=== PATIENT | female | born 1960 | race Caucasian/White ===

== ENCOUNTER 2025-11-17 14:57 | Emergency (ER) | payer OTHER, SELFPAY ==
--- NOTE | ~2025-11-17 | CT_ITS ---
EXAMINATION: CT HEAD WITHOUT CONTRAST CLINICAL INFORMATION: Fall COMPARISON: None available. TECHNIQUE: Contiguous axial imaging was performed from the skull base to vertex without intravenous administration of contrast. This CT examination was performed using dose optimization techniques as appropriate, variously including the following: *Automated exposure control *Adjustment of mA and/or kV according to patient size (this includes techniques or standardized protocols for targeted exams where dose is matched to indication/reason for exam; i.e. extremities or head) *Use of iterative reconstruction technique FINDINGS: There is no acute ischemic change. There is no intracranial hemorrhage. There is no mass-effect or midline shift. Basal cisterns and ventricles are within normal limits for age/cerebral volume. Orbits are symmetrical and unremarkable. There is mucosal thickening along the posterior wall right sphenoid sinus. There is partial opacification of the ethmoid air cells on the right. There is mucosal thickening along the superior medial right maxillary sinus. There are marginal osteophyte involving bilateral anterior condyles. CT/CT head/brain wo IV con IMPRESSION: No acute intracranial abnormality. Chronic mucosal changes in the right ethmoid, sphenoid, and maxillary sinuses. Osteoarthritis: bilateral temporal mandibular joints. Electronically signed by: Oswald Orellana MD 11/17/2025 03:38 PM EST
--- NOTE | ~2025-11-17 | CT_ITS ---
EXAMINATION: CT CERVICAL SPINE WITHOUT CONTRAST CLINICAL INFORMATION: Trauma, fall COMPARISON: None available. TECHNIQUE: Axial imaging was performed from the base of the skull through T2 without IV contrast. Coronal and sagittal reformatted images were generated from the original axial data set. ALARA: The examination used one or more of the following radiation dose reduction techniques: Automated exposure control, iterative reconstruction, and/or adjustment of mA and/or KV. FINDINGS: There is a 6 mm low attenuating nodule in the right lobe thyroid gland and 4 mm hypodensity in the left. There is no prevertebral soft tissue swelling. There are facet and uncovertebral osteophytes throughout the cervical spine. There is also degenerative disc disease with calcification in the disc at C2 4 C4-5. At C6-7 there is moderate disc space narrowing with vacuum phenomenon and degenerative endplate changes. CT/CT cervical spine wo IV con IMPRESSION: No acute bony abnormality. 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 Bilateral thyroid lobe nodules, follow-up nonemergent thyroid ultrasound. Electronically signed by: Oswald Orellana MD 11/17/2025 03:44 PM EST
--- NOTE | ~2025-11-17 | XR_ITS ---
EXAMINATION: XR KNEE 4 OR MORE VIEWS RIGHT, XR KNEE 4 OR MORE VIEWS LEFT HISTORY: Fall COMPARISON: There are no prior studies available for comparison. FINDINGS: Eight views of the bilateral knees are submitted. Osseous mineralization is normal. There is no fracture or dislocation. There is mild tricompartmental osteoarthritis of both knees with joint space narrowing and small osteophyte formation. The soft tissues are unremarkable. There is no joint effusion. XR/XR knee LT 4V IMPRESSION: No evidence of fracture of the bilateral knees. Electronically signed by: Sumeet Burger MD 11/17/2025 03:25 PM TRISHA
--- NOTE | ~2025-11-17 | XR_ITS ---
EXAMINATION: XR KNEE 4 OR MORE VIEWS RIGHT, XR KNEE 4 OR MORE VIEWS LEFT HISTORY: Fall COMPARISON: There are no prior studies available for comparison. FINDINGS: Eight views of the bilateral knees are submitted. Osseous mineralization is normal. There is no fracture or dislocation. There is mild tricompartmental osteoarthritis of both knees with joint space narrowing and small osteophyte formation. The soft tissues are unremarkable. There is no joint effusion. XR/XR knee RT 4V IMPRESSION: No evidence of fracture of the bilateral knees. Electronically signed by: Sumeet Burger MD 11/17/2025 03:25 PM TRISHA
--- NOTE | ~2025-11-17 | XR_ITS ---
EXAMINATION: XR SHOULDER 2 OR MORE VIEWS RIGHT HISTORY: fall COMPARISON: There are no prior studies available for comparison. FINDINGS: Three views of the right shoulder are submitted. Osseous mineralization is normal. There is no fracture or dislocation. The glenohumeral joint is maintained. There is moderate narrowing of the AC joint. The soft tissues are unremarkable. XR/XR shoulder RT min 2V IMPRESSION: Moderate narrowing of the AC joint. No evidence of fracture of the right shoulder. Electronically signed by: Sumeet Burger MD 11/17/2025 03:22 PM TRISHA YANG
[2025-11-17 15:02] VITALS: BP 137/101; PULSE 91; RESP 18; TEMP 36.6; O2SAT 98; BMI 21.9
--- NOTE | 2025-11-17 15:04 | ED.GENADULT ---
HPI - General Adult General Chief complaint: Head Injury Stated complaint: Fall- Hit Top Of Head Time Seen by Provider: 11/17/25 16:11 Source: patient, RN notes reviewed and old records reviewed Mode of arrival: ambulatory Limitations: no limitations History of Present Illness ED Provider: Rodríguez KELLER narrative: 65-year-old female presents for evaluation after a fall. She reports that she tripped over a curb She struck the right side of her on the ground and suffered a small laceration. She denies any chest pain, lightheadedness, shortness of breath or dizziness prior to or after falling. She will receive entire incident. She reports falling on her knees as well She has some right shoulder pain. She is not anticoagulated. She has no other complaints or concerns at this time Related Data Allergies Allergy/AdvReac Type Severity Reaction Status Date / Time Penicillins (PCN) Allergy Unknown Verified 11/17/25 15:04 Review of Systems Constitutional: Constitutional: Denies body ache(s), Denies chills, Denies fever(s) and Denies headache(s) Eyes: Eyes: Denies blurry vision, Denies seeing flashes and Denies photophobia ENT: Denies dysphagia, Denies vertigo, Denies dizziness and Denies headache(s) Cardiovascular: Cardiovascular: Denies chest pain, Denies syncope, Denies palpitations and Denies dyspnea on exertion Respiratory: Respiratory: Denies cough and Denies dyspnea on exertion Gastrointestinal: Gastrointestinal: Denies abdominal pain, Denies dysphagia, Denies nausea and Denies vomiting Musculoskeletal: Musculoskeletal: Denies back pain, Reports arthralgias and Reports joint swelling Integumentary/Breasts: Skin/Breast: Denies rash and Reports wounds Neurologic: Denies vertigo, Denies dizziness, Denies syncope and Denies headache(s) Psychiatric: Psychiatric: Denies anxiety Endocrine: Endocrine: Denies palpitations [facility] Social History Social History Advance Directives: No Advance Directives Information Provided: No Do you have a plan to hurt others: No Plan Physical Exam ED Vital Signs: Vital Signs - 24 hr 11/17/25 15:02 11/17/25 16:28 11/17/25 17:15 Temperature 98 F 98 F Pulse Rate 91 74 74 Respiratory Rate 18 16 16 Blood Pressure 137/101 H 124/93 H 124/93 H Pulse Oximetry 98 97 97 Oxygen Delivery Method Room Air Room Air Room Air BMI result Body Mass Index 21.9 Const General: healthy appearing, comfortable, no acute distress, alert and awake Nutritional Appearance: well nourished Orientation/consciousness: patient oriented x3 HENMT Other: There is a small, linear 1 cm laceration superolateral to the lateral aspect of the right eyebrow. No active bleeding Eyes Eyelids: Yes eyelids normal Conjunctivae: conjunctivae normal Sclerae: sclerae normal Corneas: corneas normal Pupils: Equal, round and reactive pupils present EOM: EOMs intact bilaterally Direct Ophthalmoscopy: No photophobia Neck Neck: Yes full ROM Resp Effort & Inspection: normal respiratory effort, able to speak in complete sentences and not labored Cardio Rate: regular rate Rhythm: regular rhythm GI Inspection: No distended Palpation (GI): Soft to palpation, not firm, nontender, no guarding and not rigid Skin General skin exam: elasticity normal Neuro General: patient oriented x3 Cranial nerves: Yes CN's II-XII intact bilaterally, Yes Equal, round and reactive pupils present and Yes Bilaterally intact EOM present Cognition (Neuro): normal cognition Extrem Other: Moving all extremities well without any obvious deformities Course Course Course Narrative: RME: 65 yold female presens to the ED for fall at [employer]. Patient states bilateral knee pain, rigt shoulder pain, and right sided hedache after tripping over curb. patient denies any dizziness, chest pain, shorntess of brath, adominal pain, or headache, before falling. images ordered Medications Administered Discontinued Medications Generic Name Dose Route Start Last Admin Trade Name Freq PRN Reason Stop Dose Admin Diphtheria/Tetanus/Acell Pertussis 0.5 ml 11/17/25 16:37 11/17/25 17:11 Diphth,Pertus(Acell),Tet Adult 0.5 Ml Syringe IM 11/17/25 16:38 0.5 ml .ONCE ONE Administration Lidocaine/Epinephrine 10 ml 11/17/25 16:37 11/17/25 17:11 Lidocaine Hcl 1%/Epi 1:100,000 10 Ml Vial INFILTRATI 11/17/25 16:38 10 ml ONCE ONE Administration Procedures Laceration Laceration 1: Site: face Side (If applicable): right Size (cm): 2 Description: linear Depth: simple, single layer Local Anesthetic: lidocaine 1% and with epi Amount of anesthesia used (mL): 2 Pre-repair: wound explored, irrigated extensively and deep structures intact Size (cm): 5-0 Number of sutures: 3 Technique: simple, interrupted Medical Decision Making Medical Decision Making MDM Narrative: 65-year-old female presents for evaluation after a nonsyncopal fall. She tripped over a curb. She had a CT scan of the brain and cervical spine which shows an incidental thyroid nodule and some arthritis. These findings were discussed with the patient. No other traumatic injuries noted. She had x-ray imaging as well that does not show any traumatic injuries. The patient is quite well appearing, this is an isolated incident, she is able to ambulate without any difficulty. I do not feel that she would benefit from a physical therapy evaluation and a rehab. The patient is stable for discharge. Her tetanus was updated Differential Diagnosis Differential Diagnoses: The differential diagnosis associated with the presentation includes Fall Laceration Minor head injury Concussion Intracranial hemorrhage Cervical fracture Radiology Impression Discussion of test interpretation with radiology: I have reviewed the radiologist's reading. Radiologist Impression: FINDINGS: There is no acute ischemic change. There is no intracranial hemorrhage. There is no mass-effect or midline shift. Basal cisterns and ventricles are within normal limits for age/cerebral volume. Orbits are symmetrical and unremarkable. There is mucosal thickening along the posterior wall right sphenoid sinus. There is partial opacification of the ethmoid air cells on the right. There is mucosal thickening along the superior medial right maxillary sinus. There are marginal osteophyte involving bilateral anterior condyles. CT/CT head/brain wo IV con IMPRESSION: No acute intracranial abnormality. Chronic mucosal changes in the right ethmoid, sphenoid, and maxillary sinuses. Osteoarthritis: bilateral temporal mandibular joints. Electronically signed by: Oswald Orellana MD 11/17/2025 03:38 PM [facility] FINDINGS: There is a 6 mm low attenuating nodule in the right lobe thyroid gland and 4 mm hypodensity in the left. There is no prevertebral soft tissue swelling. There are facet and uncovertebral osteophytes throughout the cervical spine. There is also degenerative disc disease with calcification in the disc at C2 4 C4-5. At C6-7 there is moderate disc space narrowing with vacuum phenomenon and degenerative endplate changes. CT/CT cervical spine wo IV con IMPRESSION: No acute bony abnormality. 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 Bilateral thyroid lobe nodules, follow-up nonemergent thyroid ultrasound. Electronically signed by: Oswald Orellana MD 11/17/2025 03:44 PM EST RP FINDINGS: Eight views of the bilateral knees are submitted. Osseous mineralization is normal. There is no fracture or dislocation. There is mild tricompartmental osteoarthritis of both knees with joint space narrowing and small osteophyte formation. The soft tissues are unremarkable. There is no joint effusion. XR/XR knee LT 4V IMPRESSION: No evidence of fracture of the bilateral knees. Electronically signed by: Sumeet Burger MD 11/17/2025 03:25 PM EST RP Discharge Plan Discharge Clinical Impression: Facial laceration, Thyroid nodule Patient Disposition: Home, Self-Care Instructions: Laceration (ED) Additional Instructions: Your imaging today showed mild arthritis in your neck, knees and shoulder. Incidentally found was a nodule on your thyroid. It is recommended that you get a nonemergent ultrasound to follow up with us up You had 3 sutures placed at given removed in 5-7 days. Keep the area clean and dry. You may apply topical antibiotic Interventions: ED Discharge Assessment Last Done: 11/17/25 17:15 Discharge Date/Time: 11/17/25 17:19 Print Language: Maltese
[2025-11-17 16:28] VITALS: BP 124/93; PULSE 74; RESP 16; O2SAT 97
[2025-11-17] MEDS: Diphth,Pertus(ACell),Tet Adult 0.5 ML SYRINGE IM (17:11)
[2025-11-17] MEDS: Lidocaine HCl 1%/Epi 1:100,000 10 ML VIAL INFILTRATI (17:11)
[2025-11-17 17:15] VITALS: BP 124/93; PULSE 74; RESP 16; TEMP 36.6; O2SAT 97
--- OUTSIDE RECORDS SUMMARY | 2025-11-17 18:55 | XMS_ITS | Encounter Summary ---
Author Organization Ren Salguero MD Address Unknown Phone Care Team Providers Care Lead Sql Developer Name Role Phone Jaren Fuentes APRN Primary Care Provider Reason for Visit * Reason Comments Medication Refill Encounter Details Date Type Department Care Team (Late st Contact Info) Description 12/28/[address] Ren Salguero [address] [id number] Ren Salguero MD [address] [phone] Medication Refill Social History Tobacco Use Types Packs/Day Years Used Date Smoking Tobacco: Never Smokeless Tobacco: Never Comments Unknown Sex and Gender Information Value Date Recorded Sex Assigned at Not on file Legal Sex Female 6:50 AM EST Gender Identity Female 01/06/2024 4:17 PM EST Sexual Orientation Choose not to disclose 2023 4:17 PM EST documented as of this encounter Plan of Treatment Upcoming Encounters Date Type Department Care Team (Late st Contact Info) Description 02/12/2026 10:00 AM EDT Follow Up [facility] [place] [address] [place], [place] [id number] Jaren Fuentes APRN [address] [place] [phone] 06/11/2026 8:40 AM EDT Office Visit Cardiovascular Medicine at [address] [facility] [address] [facility] [address] [place] [address] Jaren Fuentes APRN [address] [place] [phone] Kings Frederick MD [address] [place] [phone] 08/31/2026 10:00 AM EDT Follow Up Dr Ren Salguero [address] [phone] Ren Salguero MD [address] [phone] 11/06/2026 4:00 PM EST Office Visit [facility] [place] [address] [place], [place] [id number] Jaren Fuentes APRN [address] [place] [address] documented as of this encounter Visit Diagnoses Diagnosis Nummular dermatitis Contact dermatitis and other eczema, due to unspecified cause documented in this encounter Additional Health Concerns Infection Onset Date Last Indicated Resolved Time COVID-19 03/04/2022 03/04/2022 03/14/2022 7:20 PM EDT documented as of this encounter Care Teams Lead Sql Developer Relationship Specialty Start Date End Date Jaren Fuentes APRN [address] [place] [phone] PCP - General Internal Medicine 05/21/25 documented as of this encounter
--- OUTSIDE RECORDS SUMMARY | 2025-11-17 18:55 | XMS_ITS ---
Author Name [facility] Organization Unknown Results Test Name/Text Value Interpretation Date Range Source HbA1c MFr Bld 5.5 % 10/31/2025 - [facility] BKR ESTIMATED AVERAGE GLUCOSE 111.0 mg/dL 10/31/2025 [facility] 25(OH)D3+25(OH)D2 SerPl-mCnc 34.0 ng/mL 10/29/2025 - [facility] Trigl SerPl-mCnc 39.0 mg/dL 10/29/2025 - [facility] LDLc SerPl Calc-mCnc 152.0 mg/dL Above high normal 5 - [facility] Cholest SerPl-mCnc 242.0 mg/dL Above high normal 10/29/2025 - [facility] Cholest/HDLc SerPl 2.9 10/29/2025 0 - 5 [facility] HDLc SerPl-mCnc 84.0 mg/dL 10/29/2025 - [facility] Albumin SerPl BCG-mCnc 4.1 g/dL 10/29/2025 3.6 - 5.1 [facility] AST SerPl w P-5'-P-cCnc 17.0 U/L 10/29/2025 10 - 35 [facility] GFR SerPlBld Creatinine-bsd fmla CKD-EPI >60.0 mL/min/1.73m2 10/29/2025 - [facility] Potassium SerPl-sCnc 4.0 mmol/L 10/29/2025 3.3 - 5 .3 [facility] HCO3 SerPl-sCnc 26.0 mmol/L 10/29/2025 20 - 30 [facility] Chloride SerPl-sCnc 103.0 mmol/L 10/29/2025 98 - 1 07 [facility] Albumin/Glob SerPl 1.4 10/29/2025 1 - 2.2 [facility] BUN/Creat SerPl 26.1 Above high normal 10/29/2025 8 - 2 3 [facility] Prot SerPl-mCnc 7.0 g/dL 10/29/2025 5.9 - 8.3 [facility] Calcium SerPl-mCnc 9.0 mg/dL 10/29/2025 8.8 - 10.2 [facility] ALP SerPl-cCnc 35.0 U/L 10/29/2025 9 - 122 [facility] BKR CREATININE DELTA -0.01 10/29/2025 - [facility] BUN SerPl-mCnc 18.0 mg/dL 10/29/2025 8 - 23 [facility] Glucose SerPl-mCnc 90.0 mg/dL 10/29/2025 70 - 100 [facility] ALT SerPl w/o P-5'-P-cCnc 15.0 U/L 10/29/2025 10 - 35 [facility] Sodium SerPl-sCnc 140.0 mmol/L 10/29/2025 136 - 14 4 [facility] Bilirub SerPl-mCnc 0.5 mg/dL 10/29/2025 - [facility] Anion Gap SerPl Calculated.3Ions-sCnc 11.0 10/29/2025 7 - 17 [facility] T AST/ALT SerPl-cRto 1.1 10/29/2025 - [facility] Globulin Plas-mCnc 2.9 g/dL 10/29/2025 2 - 3.9 [facility] Creat SerPl-mCnc 0.69 mg/dL 10/29/2025 0.4 - 1.3 [facility] Iron Satn MFr SerPl 30.0 % 10/29/2025 15 - 50 [facility] TIBC SerPl-mCnc 237.0 ug/dL Below low normal 10/29/2025 250 - 450 [facility] Iron SerPl-mCnc 71.0 ug/dL 10/29/2025 37 - 145 [facility] TSH SerPl DL<=0.005 mIU/L-aCnc 2.49 uIU/mL 10/29/2025 - [facility] Vit B12 SerPl-mCnc 1300.0 pg/mL Above high normal 10/29/2025 232 - 1245 [facility] Ferritin SerPl-mCnc 250.0 ng/mL Above high normal 10/29/2025 13 - 150 [facility] MCHC RBC Auto-EntMCnc 32.2 g/dL 10/29/2025 31 - 36 [facility] RDW RBC Auto 12.7 % 10/29/2025 11 - 15 [facility] T WBC # Bld Auto 7.1 x1000/uL 10/29/2025 4 - 11 [facility] Hct VFr Bld Auto 41.3 % 10/29/2025 35 - 45 [facility] Monocytes NFr Bld Auto 8.8 % 10/29/2025 4 - 12 [facility] Platelet # Bld Auto 253.0 x1000/uL 10/29/2025 150 - 420 [facility] Basophils # Bld Auto 0.1 x 1000/uL 10/29/2025 0 - 1 [facility] Imm Granulocytes NFr Bld Auto 0.1 % 10/29/2025 0 - 1 [facility] Eosinophil NFr Bld Auto 7.1 % Above high normal 10/29/2025 0 - 5 [facility] Imm Granulocytes # Bld Auto 0.01 x 1000/uL 10/29/2025 0 - 0.3 [facility] nRBC Bld Auto-Rto 0.0 % 10/29/2025 0 - 1 [facility] Monocytes # Bld Auto 0.63 x 1000/uL 10/29/2025 0 - 1 [facility] MCH RBC Qn Auto 29.5 pg 10/29/2025 27 - 33 [facility] Lymphocytes # Bld Auto 2.24 x 1000/uL 10/29/2025 0 .6 - 3.7 [facility] RBC # Bld Auto 4.51 M/uL 10/29/2025 4 - 6 [facility] Eosinophil # Bld Auto 0.51 x 1000/uL 10/29/2025 0 - 1 [facility] Basophils NFr Bld Auto 1.4 % 10/29/2025 0 - 1. 4 [facility] Neutrophils NFr Bld Auto 51.2 % 10/29/2025 39 - 72 [facility] RBC Auto 91.6 fL 10/29/2025 80 - 100 [facility] nRBC # Bld Auto 0.0 x 1000/uL 10/29/2025 0 - 1 [facility] Lymphocytes NFr Bld Auto 31.4 % 10/29/2025 17 - 50 [facility] Neutrophils # Bld Auto 3.65 x 1000/uL 10/29/2025 2 - 7.6 [facility] PMV Bld Auto 9.5 fL 10/29/2025 8 - 12 [facility] T Hgb Bld-mCnc 13.3 g/dL 10/29/2025 11.7 - 15.5 [facility] HbA1c MFr Bld 5.6 % 06/05/2025 - [facility] CT BKR ESTIMATED AVERAGE GLUCOSE 114.0 mg/dL 06/05/2025 [facility] Vit B12 SerPl-mCnc 1032.0 pg/mL 06/04/2025 232 - 1 245 [facility] Hct VFr Bld Auto 43.7 % 06/04/2025 35 - 45 [facility] Basophils NFr Bld Auto 1.9 % Above high normal 0 - 1.4 [facility] Eosinophil # Bld Auto 0.56 x 1000/uL 06/04/2025 0 - 1 [facility] RBC # Bld Auto 4.71 M/uL 06/04/2025 4 - 6 [facility] MCHC RBC Auto-EntMCnc 32.7 g/dL 06/04/2025 31 - 36 [facility] Basophils # Bld Auto 0.14 x 1000/uL 06/04/2025 0 - 1 [facility] nRBC Bld Auto-Rto 0.0 % 06/04/2025 0 - 1 [facility] MCH RBC Qn Auto 30.4 pg 06/04/2025 27 - 33 [facility] PMV Bld Auto 9.4 fL 06/04/2025 8 - 12 [facility] T RBC Auto 92.8 fL 06/04/2025 80 - 100 [facility] Imm Granulocytes # Bld Auto 0.01 x 1000/uL 06/04/2025 0 - 0.3 [facility] Neutrophils # Bld Auto 3.42 x 1000/uL 06/04/2025 2 - 7.6 [facility] Lymphocytes NFr Bld Auto 35.3 % 06/04/2025 17 - 50 [facility] Platelet # Bld Auto 279.0 x1000/uL 06/04/2025 150 - 420 [facility] Lymphocytes # Bld Auto 2.6 x 1000/uL 06/04/2025 0. 6 - 3.7 [facility] WBC # Bld Auto 7.4 x1000/uL 06/04/2025 4 - 11 [facility] Monocytes # Bld Auto 0.63 x 1000/uL 06/04/2025 0 - 1 [facility] RDW RBC Auto 12.5 % 06/04/2025 11 - 15 [facility] T Eosinophil NFr Bld Auto 7.6 % Above high normal 06/04/2025 0 - 5 [facility] nRBC # Bld Auto 0.0 x 1000/uL 06/04/2025 0 - 1 [facility] Neutrophils NFr Bld Auto 46.5 % 06/04/2025 39 - 72 [facility] Hgb Bld-mCnc 14.3 g/dL 06/04/2025 11.7 - 15.5 [facility] Monocytes NFr Bld Auto 8.6 % 06/04/2025 4 - 12 [facility] Imm Granulocytes NFr Bld Auto 0.1 % 06/04/2025 0 - 1 [facility] TSH SerPl DL<=0.005 mIU/L-aCnc 3.18 uIU/mL 06/04/2025 - [facility] HDLc SerPl-mCnc 95.0 mg/dL 06/04/2025 - [facility] LDLc SerPl Calc-mCnc 177.0 mg/dL Above high normal 5 - [facility] Cholest/HDLc SerPl 2.9 06/04/2025 0 - 5 [facility] Trigl SerPl-mCnc 43.0 mg/dL 06/04/2025 - [facility] Cholest SerPl-mCnc 278.0 mg/dL Above high normal 06/04/2025 - [facility] TIBC SerPl-mCnc 266.0 ug/dL 06/04/2025 250 - 450 [facility] Iron Satn MFr SerPl 39.0 % 06/04/2025 15 - 50 [facility] Iron SerPl-mCnc 103.0 ug/dL 06/04/2025 37 - 145 [facility] Globulin Plas-mCnc 2.7 g/dL 06/04/2025 2 - 3.9 [facility] BUN SerPl-mCnc 15.0 mg/dL 06/04/2025 8 - 23 [facility] BKR CREATININE DELTA 06/04/2025 [facility] BUN/Creat SerPl 21.4 06/04/2025 8 - 23 [facility] Creat SerPl-mCnc 0.7 mg/dL 06/04/2025 0.4 - 1.3 [facility] GFR SerPlBld Creatinine-bsd fmla CKD-EPI >60.0 mL/min/1.73m2 06/04/2025 - [facility] Albumin SerPl BCG-mCnc 4.5 g/dL 06/04/2025 3.6 - 5.1 [facility] Chloride SerPl-sCnc 102.0 mmol/L 06/04/2025 98 - 1 07 [facility] Anion Gap SerPl Calculated.3Ions-sCnc 12.0 06/04/2025 7 - 17 [facility] T AST/ALT SerPl-cRto 1.0 06/04/2025 - [facility] Sodium SerPl-sCnc 141.0 mmol/L 06/04/2025 136 - 14 4 [facility] AST SerPl w P-5'-P-cCnc 18.0 U/L 06/04/2025 10 - 35 [facility] Calcium SerPl-mCnc 9.2 mg/dL 06/04/2025 8.8 - 10.2 [facility] HCO3 SerPl-sCnc 27.0 mmol/L 06/04/2025 20 - 30 [facility] Glucose SerPl-mCnc 92.0 mg/dL 06/04/2025 70 - 100 [facility] Potassium SerPl-sCnc 4.1 mmol/L 06/04/2025 3.3 - 5 .3 [facility] ALT SerPl w/o P-5'-P-cCnc 18.0 U/L 06/04/2025 10 - 35 [facility] Prot SerPl-mCnc 7.2 g/dL 06/04/2025 5.9 - 8.3 [facility] ALP SerPl-cCnc 41.0 U/L 06/04/2025 9 - 122 [facility] Albumin/Glob SerPl 1.7 06/04/2025 1 - 2.2 [facility] Bilirub SerPl-mCnc 0.6 mg/dL 06/04/2025 - [facility] 25(OH)D3+25(OH)D2 SerPl-mCnc 38.0 ng/mL 06/04/2025 - [facility] Ferritin SerPl-mCnc 278.0 ng/mL Above high normal 06/04/2025 13 - 150 [facility] History of Medication Use Medication Directions Dispensed Refills Start Date End Date Stat us estradioL (ESTRACE) 0.01 % vaginal cream Place 1 g vaginally twice a week. Use daily for first 4 weeks. 11/06/2025 active triamcinolone (KENALOG) 0.1 % lotion Apply topically daily as needed. Apply to affected area 03/31/2025 active triamcinolone (KENALOG) 0.1 % lotion Apply topically daily as needed. Apply to affected area 03/31/2025 active clobetasoL (TEMOVATE) 0.05 % cream apply to affected area twice a day for 2 weeks then once daily for 2 weeks 12/28/2021 active clobetasoL (OLUX) 0.05 % topical foam APPLY TOPICALLY DAILY NEEDED TO AFFECTED AREAS ON SCALP 12/13/2021 active tacrolimus (PROTOPIC) 0.1 % ointment Apply topically daily. Use topical steroid for 1-2 days first then protopic 05/20/2021 active tacrolimus (PROTOPIC) 0.1 % ointment Apply topically daily. Use topical steroid for 1-2 days first then protopic 05/20/2021 active gabapentin (NEURONTIN) 100 mg capsule Take 1 capsule (100 mg total) by mouth 3 (three) times daily. 02/10/2021 09/29/2023 aborted gabapentin (NEURONTIN) 100 mg capsule Take 1 capsule (100 mg total) by mouth 3 (three) times daily. 02/10/2021 active valACYclovir (VALTREX) 1000 mg tablet Take one tablet three times daily for one week for shingles. 02/09/2021 11/23/2022 aborted valACYclovir (VALTREX) 1000 mg tablet Take one tablet three times daily for one week for shingles. 02/09/2021 active ALPRAZolam (XANAX) 0.5 mg tablet take 1 tablet by mouth twice a day if needed as directed 02/02/2021 active ALPRAZolam (XANAX) 0.5 mg tablet take 1 tablet by mouth twice a day if needed as directed 02/02/2021 active propranoloL (INDERAL) 10 mg immediate release tablet take 1 tablet by mouth once daily as directed 02/02/2021 active propranoloL (INDERAL) 10 mg immediate release tablet take 1 tablet by mouth once daily as directed 02/02/2021 active clobetasoL (OLUX) 0.05 % topical foam Apply topically daily. 08/28/2020 03/31/2025 active clobetasoL (TEMOVATE) 0.05 % cream apply to affected area twice a day for 2 weeks then once daily for 2 weeks 03/01/2019 03/31/2025 active predniSONE (DELTASONE) 20 MG tablet 3 p.o. qAM x 5d then 2 p.o. qAM x 5d then 1 p.o. qAM x 5d as directed for poison deanne 08/17/2018 02/09/2021 aborted multivitamin with minerals tablet Take 1 tablet by mouth daily. active Allergies Allergen Reaction Severity Comment Documented Date Source Statu s BALSAM ANA RASH 05/21/2025 [facility] active PENICILLINS RASH 08/17/2018 [facility] active Problems Problem Status Onset Date Problem Type Date of Resolution Source Inconclusive mammogram due to dense breasts active EncounterDiagnosisAct [facility] Nummular dermatitis active 2018-08-17 ProblemAct [facility] Genitourinary syndrome of menopause active EncounterDiagnosisAct [facility] Encounter for osteoporosis screening in asymptomatic postmenopausal patient active EncounterDiagnosisAct [facility] History of nonmelanoma skin cancer active 2021-05-21 ProblemAct [facility] Screening mammogram, encounter for active EncounterDiagnosisAct [facility] History of herpes zoster active 2021-02-09 ProblemAct [facility] Diffuse photodamage of skin active ProblemAct [facility] Allergy to contactant active ProblemAct [facility] Allergy to contactant active ProblemAct [facility] History of herpes zoster active 2021-02-09 ProblemAct [facility] Diffuse photodamage of skin active ProblemAct [facility] Dense breasts active EncounterDiagnosisAct [facility] Mitral valve prolapse active 2025-05-21 ProblemAct [facility] 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 2025-02-12 ProblemAct [facility] Seborrheic keratoses active EncounterDiagnosisA ct [facility] Multiple benign nevi active EncounterDiagnosisA ct [facility] [place], acquired, right active 2023-04-04 ProblemAct [facility] Onychomycosis active 2023-04-03 ProblemAct [facility] Immunizations Vaccine Date Source Lot Number Status Influenza, high-dose, split virus, trivalent,(65Yr+),injectable, preservative free 08/23/2025 [facility] [id number] completed ZOSTER RECOMBINANT (Shingrix) 10/04/2024 [facility] [id number] completed Influenza, high-dose, split virus, trivalent,(65Yr+),injectable, preservative free 09/29/2024 [facility] [id number] completed RSV, recombinant, adjuvant, adult IM (Arexvy) 11/16/2023 [facility] [id number] completed ZOSTER RECOMBINANT (Shingrix) 09/29/2023 [facility] [id number] completed Influenza, injectable, MDCK, quad, preservative free 08/17/2023 [facility] [id number] completed Influenza, trivalent, inject able, contains preservative 08/19/2022 [facility] [id number] completed COVID-19, PFIZER 12Y up,mRNA,[place] 06/17/2022 [facility] [id number] completed Influenza, injectable, quadr ivalent, preservative free 09/29/2021 [facility] [id number] completed Tdap 08/13/2021 [facility] [id number] completed COVID-19 Vaccine - PFIZER 02/20/2021 [facility] [id number] completed COVID-19 Vaccine - PFIZER 01/30/2021 [facility] [id number] completed Influenza, injectable, quadr ivalent, preservative free 09/28/2020 [facility] [id number] completed Influenza, injectable, quadr ivalent, preservative free 10/30/2019 [facility] [id number] completed Influenza, injectable, quad with preservative 10/29/2015 [facility] [id number] completed Encounters Encounter Type Encounter Reason Primary Diagnosis Location Date Ambulatory Routine gynecologica l examination Routine gynecological examination [facility], 11/05/2025 Ambulatory Personal history of other malignant neoplasm of skin Personal history of other malignant neoplasm of skin Ren Salguero MD 03/31/2025 Ambulatory Follow-up Follow-up [facility] 03/06/2025 Ambulatory Foot Pain [facility] 10/21/2024 Ambulatory Acute frontal sinusitis, unspecified Acute frontal sinusitis, unspecified [facility] 01/23/2024 Ambulatory Personal history of other malignant neoplasm of skin Personal history of other malignant neoplasm of skin Ren Salguero MD 09/29/2023 Ambulatory [facility], 03/31/2023 Ambulatory Acute frontal sinusitis, unspecified [facility] 01/27/2023 Ambulatory [facility] 11/23/2022 Ambulatory Personal history of other malignant neoplasm of skin Ren Salguero MD 09/23/2022 Ambulatory Encounter for general adult medical examination without abnormal findings [facility] 08/19/2022 Ambulatory Cough, unspecified [facility] 03/09/2022 Ambulatory Personal history of other malignant neoplasm of skin Ren Salguero MD 09/10/2021 Care Team Organization Name Specialty Phone Email Start Date End [facility] Primary Care 11/05/2025 [facility] 09/18/2025 TRENTON Blount MD Primary Care 03/[address] [facility] TRENTON ENRIQUEZ Primary Care 03/10/2025 04/08/2025 MD YOSI Barron [facility] 11/28 Ren Salguero MD [facility] 2022 [facility] 03/31/[address] [place] [address] [facility] 11/23/2022 [facility]2022 [facility] 08/19/2022 04/08/2025 [facility], [facility] Care 03/09/2022 08/19/2022 [facility] 09/10/2021 09/23/2022
--- OUTSIDE RECORDS SUMMARY | 2025-11-17 18:55 | XMS_ITS | Encounter Summary ---
Author Organization [facility] Address [address] [place] [id number] Care Team Providers Care Grocery Clerk Selling Name Role Phone Jaren Fuentes APRN Primary Care Provider Encounter Details Date Type Department Care Team (Late st Contact Info) Description 11/15/2025 Results Follow-Up Gynecology [address] [place] [id number] Buffy Shanks MD [address] [place] [phone] Cytology head of insight cases ([facility]) Social History Tobacco Use Types Packs/Day Years Used Date Smoking Tobacco: Never Smokeless Tobacco: Never Alcohol Use Standard Drinks/Week Comments Yes 0 (1 standard drink = 0.6 oz pur e alcohol) rarely PHQ-2 Answer Date Recorded PHQ-2 Total Score 0 11/05/2025 Comments No Sex and Gender Information Value Date Recorded [...] AM EDT Follow Up [facility] [place] [address] [place], [place] [id number] Jaren Fuentes APRN [address] [place] [phone] 06/11/2026 8:40 AM EDT Office Visit Cardiovascular Medicine at 2 [facility] 2 [facility] 1 [place] [address] Gina, Jaren Colbert, SHAN [address] [place] [address] Kings Frederick MD [address] [facility] 2 [place] [phone] 08/31/2026 10:00 AM EDT Follow Up Dr Ren Salguero [address] [phone] Ren Salguero MD [address] [phone] 11/06/2026 4:00 PM EST Office Visit [facility] [place] [address] [place] [address] Jaern Fuentes, SHAN [address] [place] [address] documented as of this encounter Visit Diagnoses Not on filedocumented in this encounter Care Teams Grocery Clerk Selling Relationship Specialty Start Date End Date Jaren Fuentes, SHAN [address] [place] [address] PCP - General Internal Medicine 05/21/25 documented as of this encounter
--- OUTSIDE RECORDS SUMMARY | 2025-11-17 18:55 | XMS_ITS | Encounter Summary ---
Author Organization [facility] Address [address] [place] [address] Care Team Providers Care Machine Sprayer Name Role Phone Stephanie Deluca MD Primary Care Provider [phone] Stephanie Deluca MD Unavailable Ren Salguero MD Unavailable [phone] Stephanie Deluca MD Unavailable Encounter Details Date Type Department Care Team (Late st Contact Info) Description 04/03/2023 Scanned Document [facility] POD[facility] SCAN Podiatry, Scan Social History Tobacco Use Types Packs/Day Years Used Date Smoking Tobacco: Never Smokeless Tobacco: Never Alcohol Use Standard Drinks/Week Comments Not Currently 1 (1 standard drink = 0.6 oz pur e alcohol) PHQ-2 Answer Date Recorded PHQ-2 Total Score 0 08/19/2022 Comments Unknown Sex and Gender Information Value Date Recorded Sex Assigned at Female 10/21/2024 1:23 PM EST Legal Sex Female 4:33 PM EST Gender Identity Not on file Sexual Orientation Not on file documented as of this encounter Plan of Treatment Not on file documented as of this encounter Visit Diagnoses Not on filedocumented in this encounter Care Teams Machine Sprayer Relationship Specialty Start Date End Date Stephanie Deluca MD [address] [place] [address] PCP - General Family Medicine 03/11/21 06/01/25 Stephanie Deluca MD [address] [place] [address] PCP - [employer] Attributed 05/27/21 09/26/23 Stephanie Deluca MD [address] [place] [address] PCP - [employer] Attributed 10/27/23 Ren Salguero MD [address] [place] [address] Dermatology 05/12/22 documented as of this encounter
--- OUTSIDE RECORDS SUMMARY | 2025-11-17 18:55 | XMS_ITS | Encounter Summary ---
Author Organization [facility] and [facility] Address [address] [place] [address] Care Team Providers Care Furnace Clerk Name Role Phone Jaren Fuentes APRN Primary Care Provider Encounter Details Date Type Department Care Team (Latest Contact Info) Description 03/09/2022 Transcribed Orders [place] [facility] [address] [place], [place] [id number] Alize Akhtar, MOUNTER SMOKING PIPE [address] [facility] [address] [place] [address] Cough (Primary Dx); Fatigue; Clinical diagnosis of severe acute respiratory syndrome coronavirus 2 (SARS-CoV-2) disease Social History Tobacco Use Types Packs/Day Years [...] Description 02/12/2026 10:00 AM EDT [facility] [place] [address] [place] [address] Jaren Fuentes [employer] [address] [place] [id number] 06/11/2026 8:40 AM EDT Office Visit Cardiovascular Medicine at 2 [facility] [address] [place], [place] [id number] Blood, Jaren Colbert, MOUNTER S[employer] [address] [place] [address] Kings Frederick MD [address] Marcial Navarro [address] [address] 08/31/2026 10:00 AM EDT Follow Up Dr Ren Salguero [address] [phone] Ren Salguero MD [address] [phone] 11/06/2026 4:00 PM EST Office Visit [facility] Internal Medicine [place] [address] [place] [address] Blood, Jaren Colbert, MOUNTER [employer] [address] [place] [address] documented as of this encounter Procedures Procedure Name Priority Date/Time Associated Diagnosis Comments CBC WITH AUTO DIFFERENTIAL STAT 03/09/2022 10:37 AM EDT Cough Fatigue Clinical diagnosis of severe acute respiratory syndrome coronavirus 2 (SARS-CoV-2) disease CBC AND DIFFERENTIAL STAT 03/09/2022 10:37 AM EDT Cough Fatigue Clinical diagnosis of severe acute respiratory syndrome coronavirus 2 (SARS-CoV-2) disease documented in this encounter Results * (ABNORMAL) CBC auto differential (03/09/2022 10:37 AM EDT) [facility] WBC 8.6 4.0 - 11.0 x1000/ L 03/09/2022 10:54 AM [facility] DEPART[facility] MED[facility] RBC 4.36 4.00 - 6.00 M/ L 03/09/2022 10:54 AM [facility] DEPARTMENT OF LABORATORY [facility] Hemoglobin 12.9 11.7 - 15.5 g/dL 03/09/2022 10:54 AM [facility] DEPARTMENT [facility]AT[facility] Hematocrit 39.80 35.00 - 45.00 % 03/09/2022 10:54 AM [facility] DEPARTMENT LAB[facility]ATORY [facility] MCV 91.3 80.0 - 100.0 fL 03/09/2022 10:54 AM [facility] DEPARTMENT LAB[facility]ATORY [facility] MCH 29.6 27.0 - 33.0 pg 03/09/2022 10:54 AM [facility] DEPARTMENT [facility]ATORY [facility] MCHC 32.4 31.0 - 36.0 g/dL 03/09/2022 10:54 AM [facility] DEPART[facility] RDW-CV 12.2 11.0 - 15.0 % 03/09/2022 10:54 AM [facility] DEPART[facility] LAB[facility]AT[facility] Platelets 293 150 - 420 x1000/ L 03/09/2022 10:54 AM [facility] DEPART[facility] MPV 9.5 8.0 - 12.0 fL 03/09/2022 10:54 AM [facility] DEPARTMENT [facility]AT[facility] Neutrophils 53.5 39.0 - 72.0 % 03/09/2022 10:54 AM [facility] DEPARTMENT LABORATORY [facility] Lymphocytes 27.4 17.0 - 50.0 % 03/09/2022 10:54 AM [facility] DEPART[facility] Monocytes 9.9 4.0 - 12.0 % 03/09/2022 10:54 AM [facility] DEPART[facility] Eosinophils 7.3(H) 0.0 - 5.0 % 03/09/2022 10:54 AM [facility] Basophil 1.6(H) 0.0 - 1.4 % 03/09/2022 10:[address] [facility] Immature Granulocytes 0.3 0.0 - 1.0 % 03/09/2022 10:[address] [facility] nRBC 0.0 0.0 - 1.0 % 03/09/2022 10:54 AM [facility] ANC(Abs Neutrophil Count) 4.59 2.00 - 7.60 x 1000/ L 03/09/2022 10:54 AM [facility] Absolute Lymphocyte Count 2.36 0.60 - 3.70 x 1000/ L 03/09/2022 10:54 AM [facility] Monocyte Absolute Count 0.85 0.00 - 1.00 x 1000/ L 03/09/2022 10:54 AM [facility] Eosinophil Absolute Count 0.63 0.00 - 1.00 x 1000/ L 03/09/2022 10:54 AM [facility] Basophil Absolute Count 0.14 0.00 - 1.00 x 1000/ L 03/09/2022 10:54 AM [facility] Absolute Immature Granulocyte Count 0.03 0.00 - 0.30 x 1000/ L 03/09/2022 10:54 AM [facility] Absolute nRBC 0.00 0.00 - 1.00 x 1000/ L 03/09/2022 10:54 AM [facility] Blood Venipuncture / Unknown 03/09/2022 10:37 AM EDT 03/09/2022 10:50 AM EDT us Alize Torrez Giovana [employer] LAB BLOOD ORDERABLE S Final Result [facility] DEPART[facility] [address] [place] [address], [facility] [phone] documented in this encounter Visit Diagnoses Diagnosis Cough- Primary Fatigue Other malaise and fatigue Clinical diagnosis of severe acute respiratory syndrome coronavirus 2 (SARS-CoV-2) disease documented in this encounter Additional Health Concerns Infection Onset Date Last Indicated Resolved Time COVID-19 03/04/2022 03/04/2022 03/14/2022 7:20 PM EDT documented as of this encounter Care Teams Furnace Clerk Relationship Specialty Start Date End Date Blood, Jaren Colbert APRN 1 Jelani Burnett [address] [place] [address], [place] [address] PCP - General Internal Medicine 05/21/25 documented as of this encounter
--- OUTSIDE RECORDS SUMMARY | 2025-11-17 18:55 | XMS_ITS | Encounter Summary ---
Author Organization [facility] Address [address] [place] [address] Care Team Providers Care Rubber Moulding Machine Operator Name Role Phone Stephanie Deluca MD Primary Care Provider [phone] Stephanie Deluca MD Unavailable Ren Salguero MD Unavailable [phone] Stephanie Deluca MD Unavailable Encounter Details Date Type Department Care Team (Late st Contact Info) Description 07/19/2022 Scanned Document PACT Primary Care [place] [facility] [address] [place] [address] Stephanie Deluca MD [address] [place], [place] [phone] Social History Tobacco Use Types Packs/Day Years Used Date Smoking Tobacco: Never Smokeless Tobacco: Never Alcohol Use Standard Drinks/Week Comments Not Currently 1 (1 standard drink = 0.6 oz pur e alcohol) PHQ-2 Answer Date Recorded PHQ-2 Total Score 0 08/13/2021 Comments Unknown Sex and Gender Information Value Date Recorded Sex Assigned at Female 10/21/2024 1:23 PM EST Legal Sex Female 4:33 PM EST Gender Identity Not on file Sexual Orientation Not on file documented as of this encounter Plan of Treatment Not on file documented as of this encounter Visit Diagnoses Not on filedocumented in this encounter 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
--- OUTSIDE RECORDS SUMMARY | 2025-11-17 18:55 | XMS_ITS | Clinical Summary ---
Author Organization DR REN SALGUERO Address [address] [place] [address] Care Team Providers Care Brush Maker Machine Name Role Phone Jaren Fuentes SHAN Primary Care Provider Allergies Active Allergy Reactions Criticality Noted Date Comments Balsam [place] Dermatitis,Itching,Rash Low 05/21/2025 Penicillins Rash Low 08/17/2018 Medications tacrolimus (PROTOPIC) 0.1 % ointmentIndicat ions:Nummular dermatitis Apply topically daily. Use topical steroid for 1-2 days first then protopic 60 g 1 Active clobetasoL (TEMOVATE) 0.05 % creamIndication s:Nummular dermatitis apply to affected area twice a day for 2 weeks then once daily for 2 weeks 60 g 1 5 Active triamcinolone (KENALOG) 0.1 % lotionIndicatio ns:Nummular dermatitis Apply topically daily as needed. Apply to affected area 60 mL 5 Active multivitamin with minerals tablet Take 1 tablet by mouth daily. Active estradioL (ESTRACE) 0.01 % vaginal creamIndication s:Genitourinary syndrome of menopause Place 1 g vaginally twice a week. Use daily for first 4 weeks. 42.5 g 4 5 11/06/20 26 Active Active Problems Problem Noted Date Diagnosed Date Mitral valve prolapse 05/21/2025 Congenital cavus deformity of right foot 025 History of nonmelanoma skin cancer 05/21/2021 Overview (05/21/2021): BCC left forearm 04/2021 History of herpes zoster 02/09/2021 Overview (02/09/2021): Left T-10 01/2021 Nummular dermatitis 08/17/2018 Diffuse photodamage of skin Allergy to contactant Overview (10/09/2018): Patch test +: balsam of [place], PPD, disperse orange 3 09/2018 Resolved Problems Problem Noted Date Diagnosed Date Resolved Date Basal cell carcinoma of forearm, left 05/21/2021 06/14/2021 Herpes zoster with nervous s ystem complication 02/10/2021 05/20/2021 Encounters Date Type Department Care Team Description 11/15/2025 Results Follow-Up Gynecology [address] [place] [id number] Buffy Shanks MD 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 ([facility]) 11/05/2025 4:00 PM EST Office Visit [facility] [place] [address] [address] Jaren Fuentes APRN Annual physical exam (Primary Dx); Aortic calcification (HC Code); Hyperlipidemia, unspecified hyperlipidemia type; Elevated ferritin; Screening for colon cancer; Mitral valve prolapse 11/05/2025 10:45 AM EST Office Visit [address] [address] Buffy Shanks MD Well woman exam with routine gynecological exam (Primary Dx); Screening mammogram, encounter for; Dense breasts; Inconclusive mammogram due to dense breasts; Encounter for osteoporosis screening in asymptomatic postmenopausal patient; Genitourinary syndrome of menopause 10/29/2025 10:05 AM EST - 10/29/2025 11:59 PM EST Hospital Encounter [facility] - [address] [address] Jaren Fuentes APRN Elevated ferritin; Annual physical exam Discharge Disposition: Home or Self Care from Last 3 Months Immunizations Immunization Administration Dates Next Due COVID-19 Vaccine - PFIZER 02/20/2021,01/30/2021 COVID-19, PFIZER 12Y up,mRNA,JACKSON 06/17/2022 Influenza, high-dose, split virus, trivalent,(65Yr+),injectable, preservative free 08/23/2025,09/29/2024 Influenza, injectable, MDCK, quad, preservative free 08/17/2023 Influenza, injectable, quad with preservative 10/29/2015 Influenza, injectable, quadr ivalent, preservative free 09/29/2021,09/28/2020,10/30/2019 Influenza, trivalent, inject able, contains preservative 08/19/2022 RSV, recombinant, adjuvant, adult IM (Arexvy) 11/16/2023 Tdap 08/13/2021 ZOSTER RECOMBINANT (Shingrix) 10/04/2024, 023 Family History Medical History Relation Name Comments No Known Problems Brother 2 Heart failure Father No Known Problems Maternal Grandfather No Known Problems Maternal Grandmother Anal Cancer Mother Cancer, Non-Melanoma Skin Cancer Mother Cancer Paternal Grandfather mouth? No Known Problems Paternal Grandmother Stroke Sister 1 Lymphoma Sister 2 Leukemia Sister 3 Lymphoma Sister 4 Breast cancer Neg Hx Eczema Neg Hx Melanoma Neg Hx Ovarian cancer Neg Hx Psoriasis Neg Hx Skin Disease Neg Hx Relation Name Status Comments Brother 1 Alive Brother 2 Alive Father Maternal Grandfather Maternal Grandmother Mother Paternal Grandfather Paternal Grandmother Sister 1 Alive Sister 2 Alive Sister 3 Alive Sister 4 Alive Social History Tobacco Use Types Packs/Day Years Used Date Smoking Tobacco: Never Smokeless Tobacco: Never Tobacco Cessation:Counseling Given: Not Answered Alcohol Use Standard Drinks/Week Comments Yes 0 [...] not to disclose 2023 4:17 PM EST Last Filed Vital Signs Vital Sign Reading Time Taken Comments Blood Pressure 124/78 11/05/2025 4:09 PM EST Pulse 67 11/05/2025 4:09 PM EST Temperature - - Respiratory Rate - - Oxygen Saturation 98% 11/05/2025 4:09 PM EST Inhaled Oxygen Concentration - - Weight 63.5 kg (140 lb) 11/05/2025 4:09 PM EST Height 170.2 cm (5' 7 ) 11/05/2025 4:09 PM EST Body Mass Index 21.93 11/05/2025 4:09 PM EST Plan of Treatment Upcoming Encounters Date Type Department Care Team (Late st Contact Info) Description 02/12/2026 10:00 AM EDT Follow Up [facility] Internal Medicine [place] [address] [place] [place], [place] [phone] Blood, Jaren Colbert APRN [address] [place] [phone] 06/11/2026 8:40 AM EDT Office Visit Cardiovascular Medicine at [address] [place] [phone] Blood, Jaren Colbert APRN [address] [place] [phone] Kings Frederick MD [address] [place] [phone] 08/31/2026 10:[address]T [address] Ren Salguero [address] [place] [phone] Ren Salguero MD [address] [phone] 11/06/2026 4:00 PM EST Office Visit [facility] Internal Medicine [place] [address] [place], [place] [phone] Blood, Jaren Colbert APRN [address] [place] [phone] Health Maintenance Due Date Last Done Comments Pneumococcal Vaccine (50+ years) (1 of 2 - PCV) 1978 Colon cancer screening,FIT DNA (Cologuard) 02/28/2004 Osteoporosis screening (bone density) 02/28/2024 Breast cancer screening 12/19/2025 12/19/19 24, 06/09/2023, 05/01/2023 Covid-19 vaccine series (2024- season) 2026 08/23/2025, 09/29/2024, 08/17/2023, Additional history exists Diabetes screening 10/29/2028 10/29/2025, 1 12/30/2024, 06/04/2025, Additional history exists Lipid disorder screening 10/29/2030 10/29/2025, 07/0 07/2025 Tetanus adult (Td q 10,TDAP once) 08/13/2031 08/13/2021 RSV Immunization Completed 11/16/2023 Shingles vaccine (Shingrix) Completed 10/04/2024, 1 11/29/2022 Influenza vaccine Completed 08/23/2025, , 08/17/2023, Additional history exists Cervical cancer screening Discontinued 11/05/2025, Colon cancer screening, Colonoscopy Discontinued HIV screening Discontinued Hepatitis C screening Discontinued Meningococcal B Vaccine Aged Out No l onger eligible based on patient's age to complete this topic Meningococcal Vaccine Aged Out No anne dominic eligible based on patient's age to complete this topic Procedures Procedure Name Priority Date/Time Associated Diagnosis Comments EKG Routine 11/06/2025 3:40 PM EST Hyperlipidemia, unspecified hyperlipidemia type 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[facility]) Routine 11/05/2025 5:48 PM EST Well woman exam with routine gynecological exam POCT URINALYSIS MANUAL W/O SCOPE Routine 11/05/2025 10:52 AM EST Well woman exam with routine gynecological exam COMPREHENSIVE METABOLIC PANEL Routine 10/29/2025 10:09 AM EST Annual physical exam CBC AND DIFFERENTIAL Routine 10/29/2025 10:09 AM EST Annual physical exam COMPREHENSIVE METABOLIC PANEL Routine 10/29/2025 10:09 AM EST Annual physical exam CBC WITH AUTO DIFFERENTIAL Routine 10/29/2025 10:09 AM EST Annual physical exam FERRITIN Routine 10/29/2025 10:09 AM EST Elevated ferritin IRON AND TIBC Routine 10/29/2025 10:09 AM EST Elevated ferritin VITAMIN D, 25-HYDROXY Routine 10/29/2025 10:09 AM EST Annual physical exam VITAMIN B12 Routine 10/29/2025 10:09 AM EST Annual physical exam TSH W/REFLEX TO FT4 ( GH LMW Q YH) Routine 10/29/2025 10:09 AM EST Annual physical exam LIPID PANEL Routine 10/29/2025 10:09 AM EST Annual physical exam HEMOGLOBIN A1C Routine 10/29/2025 10:09 AM EST Annual physical exam IRON, TIBC AND FERRITIN PANEL ( GH LMW Q YH) Routine 10/29/2025 10:09 AM EST Elevated ferritin MAMMO DIAGNOSTIC ELIJAH RIGHT Routine 12/19/2023 12:06 PM EST Breast calcifications Follow-up exam, 3-6 months since previous exam from Last 3 Months or Most Recently Relevant to Health Maintenance Results * EKG (11/06/2025 3:40 PM EST) us Jaren Colbert Blood [facility] [employer] ECG ORDERABLES Final R esult * 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 ( [facility]) (11/05/2025 5:48 PM EST) Cytology [facility] CYTOLOGY REPORT Procedures/Addend a Attached Patient: MELANI LÓPEZ MR #: [id number] Submitted by: Buffy Shanks M.D. FINAL DIAGNOSIS SUREPATH PAP SMEAR: Primary Diagnosis: NEGATIVE FOR INTRAEPITHELIAL LESION OR MALIGNANCY. Additional Findings: THE PRESENCE OR ABSENCE OF ENDOCERVICAL CELLS CANNOT BE DETERMINED DUE TO ATROPHY. ATROPHIC SMEAR. HIGH RISK HPV HAS BEEN PERFORMED AND THE RESULT IS NEGATIVE. Specimen Adequacy: THIS SPECIMEN IS SATISFACTORY FOR EVALUATION. NOTE: Cervical/vaginal cytology is a screening tool for cervical carcinoma and its precursor lesions with an inherent false negative rate. It is an inaccurate test for detection of endometrial lesions and should not be used to evaluate suspected endometrial abnormalities. (The [place] System, 2001) A Care Signature Cervical Cancer Screening Pathway is available. Please use this pathway to support clinical management decisions and find information on the [employer]-based tools required for tracking and monitoring cervical cancer screening: [email or web address] (copy and paste link into browser) 11/14/2025 12:22 * Report Electronically Signed Out * This electronic signature indicates that the pathologist has personally reviewed the available gross and/or microscopic material as well as reviewed and edited the final report. Specimen(s) Received: SUREPATH PAP SMEAR Clinical History and Impression: {Not Available} Date of LMP: N/A Procedures/Addenda MOLECULAR DX: HR HPV SCREENING Pathologist: [facility] Status: Signed Out Ordered: 11/05/2025 Reported: 11/08/2025 17:24 Interpretation Specimen: SUREPATH PAP SMEAR BELOW CUTOFF FOR HIGH RISK HPV HPV types 16, 18, 31, 33, 35, 39, 45, 51, 52, 56, 58, 59, 66, and 68 DNA were either considered NEGATIVE, undetectable, or below the pre-set threshold. This test was performed at [facility] Department of Pathology, [address] [place] [id number], CLIA# [id number] using the Ender eliezer 6800 HPV Test System and is only approved by the Food and Drug Administration (FDA) for use on cervical specimens collected in Cytyc Preservcyt Solution (ThinPrep). When using ThinPrep liquid based samples for non-cervical specimens, SurePath liquid based samples, or formalin fixed paraffin embedded tissue, the performance characteristics have been determined by [facility]. Although testing on samples that are not cervical in origin, and/or in any other medium besides ThinPrep, has not been cleared or approved by the FDA, the FDA has determined that such clearance or approval is not necessary. [facility] Cervical Tracking Result Non-Tracking [facility] High Risk HPV Screening Non-Tracking [facility] Pap Smear CERVIX UTERI STRUCTURE / Unknown 11/05/2025 5:48 PM EST Comment:SUREPATH PAP SMEAR+ HPV Buffy Shanks MD PATHOLOGY/CYTOLOGY ORDERABLES F inal Result Performing Organization Address City/[facility]/ZIP Co de Phone Number [facility] Department of Pathology [address] [place] [phone] * POC urinalysis manual w/o scope (11/05/2025 10:52 AM EST) Test Lot Exp Date [facility] Test Lot Number [facility] Color, urine [facility] pH, Urine 5 Units [facility] Specific [place], urine 1.000 [facility] Glucose, urine Negative [facility] Ketone, urine Negative [facility] Blood, urine Negative [facility] Protein, urine Negative [facility] Nitrates, urine Negative [facility] Leukocytes, urine Negative [facility] Urine 11/05/2025 10:5 2 AM EST Buffy Shanks MD POINT OF CARE TEST ORDERABLES F inal Result Performing Organization Address [facility] Co de Phone Number [facility] [place], [place], [facility] * (ABNORMAL) Comprehensive metabolic panel (10/29/2025 10:09 AM EST) Sodium 140 136 - 144 mmol/L 10/29/2025 1:19 PM EST [facility] DEPARTMENT OF LABORATORY MEDICINE Potassium 4.0 3.3 - 5.3 mmol/L 10/29/2025 1:19 PM [facility] DEPARTMENT OF LABORATORY MEDICINE Chloride 103 98 - 107 mmol/L 10/29/2025 1:19 PM [facility] DEPARTMENT OF LABORATORY MEDICINE CO2 26 20 - 30 mmol/L 10/29/2025 1:19 PM [facility] DEPARTMENT OF LABORATORY MEDICINE Anion Gap 11 7 - 17 10/29/2025 1:19 PM [facility] DEPARTMENT OF LABORATORY MEDICINE Glucose 90 70 - 100 mg/dL 10/29/2025 1:19 PM [facility] DEPARTMENT OF LABORATORY MEDICINE BUN 18 8 - 23 mg/dL 10/29/2025 1:19 PM [facility] DEPARTMENT OF LABORATORY MEDICINE Creatinine 0.69 0.40 - 1.30 mg/dL 10/29/2025 1:19 PM [facility] DEPARTMENT OF LABORATORY MEDICINE Calcium 9.0 8.8 - 10.2 mg/dL 10/29/2025 1:19 PM [facility] DEPARTMENT OF LABORATORY MEDICINE BUN/Creatinine Ratio 26.1(H) 8.0 - 23.0 10/29/2025 1:19 PM [facility] DEPARTMENT OF LABORATORY MEDICINE Total Protein 7.0 5.9 - 8.3 g/dL 025 1:19 PM [facility] DEPARTMENT OF LABORATORY MEDICINE Albumin 4.1 3.6 - 5.1 g/dL 10/29/2025 1:19 PM [facility] DEPARTMENT OF LABORATORY MEDICINE Total Bilirubin 0.5 <=1.2 mg/dL 10/29/20 25 1:19 PM [facility] DEPARTMENT OF LABORATORY MEDICINE Alkaline Phosphatase 35 9 - 122 U/L 10/29/2025 1:19 PM [facility] DEPARTMENT OF LABORATORY MEDICINE Alanine Aminotransferase (ALT) 15 10 - 35 U/L 10/29/2025 1:19 PM [facility] DEPARTMENT OF LABORATORY MEDICINE Comment:Calcium dobesilate c an cause artificially low ALT results at therapeutic concentrations Aspartate Aminotransferase (AST) 17 10 - 35 U/L 10/29/2025 1:19 PM [facility] DEPARTMENT OF LABORATORY MEDICINE Globulin 2.9 2.0 - 3.9 g/dL 10/29/2025 1:19 PM [facility] DEPARTMENT OF LABORATORY MEDICINE A/G Ratio 1.4 1.0 - 2.2 10/29/2025 1:19 PM [facility] DEPARTMENT OF LABORATORY MEDICINE AST/ALT Ratio 1.1 Reference Range Not Established 10/29/2025 1:19 PM [facility] DEPARTMENT OF LABORATORY MEDICINE eGFR (Creatinine) >60 >=60 mL/min/1.73m2 10/29/2025 1:19 PM [facility] DEPARTMENT OF LABORATORY MEDICINE Comment: [facility] utilizes CKD-EPI Creatinine 2020 to report eGFR. Values < 60 mL/min/1.73 m2 may indicate CKD if present for more than three months AND creatinine is at steady state. The eGFR provides a rough estimate of kidney function. For further guidance, please refer to the CKD: Adult Sugar Refiner Signature pathway. Creatinine Delta -0.01 See Comment 1:19 PM [facility] DEPARTMENT OF LABORATORY MEDICINE Comment: Delta creatinine is the difference between the current creatinine and the most recent prior creatinine (if available within the previous 12 months). It is intended to detect significant changes in kidney function for patients whose creatinine is <5 mg/dL. A delta is not calculated for patients whose baseline creatinine is >=5 mg/dL or those who do not have a baseline within the last year. The following deltas will flag as critical (triggering a call from the laboratory): a) Deltas >= +1.5 mg/dL for patients with baseline creatinine <= 1.5 mg/dL. b) Deltas >= +3 mg/dL for patients with baseline creatinine between 1.5 and 5 mg/dL. Blood Venipuncture / Unknown 10/29/2025 10:09 AM EST 10/29/2025 10:09 AM EST us Jaren Colbert Blood [facility] LAB BLOOD ORDERABLES Fi nal Result [facility] DEPARTMENT OF LABORATORY MEDICINE [address] [place] [address] * TSH w/reflex to FT4 (BH GH LMW Q YH) (10/29/2025 10:09 AM EST) Thyroid Stimulating Hormone 2.490 See Comment IU/mL 10/29/2025 1:19 PM [facility] DEPARTMENT OF LABORATORY MEDICINE Comment: Male & Non- Females: 0.270-4.200 IU/mL 1st Trimester: 0.110-3.480 IU/mL 2nd Trimester: 0.320-3.850 IU/mL Blood Venipuncture / Unknown 10/29/2025 10:09 AM EST 10/29/2025 10:09 AM EST Jaren Colbert [facility] LAB BLOOD ORDERABLES Fi nal Result Performing Organization Address [facility] de Phone Number [facility] DEPARTMENT OF LABORATORY MEDICINE [address] [place] [address] * Vitamin D, 25-hydroxy (10/29/2025 10:09 AM EST) Vitamin D 25-Hydroxy Total 34 See Comment ng/mL 10/29/2025 1:19 PM [facility] DEPARTMENT OF LABORATORY MEDICINE Comment: Reference Ranges: <10 ng/mL - Severe deficiency 10-19 ng/mL - Mild to moderate deficiency 20-50 ng/mL - Optimum Levels 51-80 ng/mL - Increased risk of hypercalciuria >80 ng/mL - Toxicity possible Blood Venipuncture / Unknown 10/29/2025 10:09 AM EST 10/29/2025 10:09 AM EST Jaren Colbert [facility] LAB BLOOD ORDERABLES Fi nal Result Performing Organization Address [facility] de Phone Number [facility] DEPARTMENT OF LABORATORY MEDICINE [address] [place] [address] * (ABNORMAL) CBC auto differential (10/29/2025 10:09 AM EST) WBC 7.1 4.0 - 11.0 x1000/ L 10/29/2025 12:17 PM [facility] DEPARTMENT OF LABORATORY MEDICINE RBC 4.51 4.00 - 6.00 M/ L 10/29/2025 12:17 PM [facility] DEPARTMENT OF LABORATORY MEDICINE Hemoglobin 13.3 11.7 - 15.5 g/dL 10/29/2025 12:17 PM [facility] DEPARTMENT OF LABORATORY MEDICINE Hematocrit 41.30 35.00 - 45.00 % 10/29/2025 12:17 PM [facility] DEPARTMENT OF LABORATORY MEDICINE MCV 91.6 80.0 - 100.0 fL 10/29/2025 12:17 PM [facility] DEPARTMENT OF LABORATORY MEDICINE MCH 29.5 27.0 - 33.0 pg 10/29/2025 12:17 PM [facility] DEPARTMENT OF LABORATORY MEDICINE MCHC 32.2 31.0 - 36.0 g/dL 10/29/2025 12:17 PM [facility] DEPARTMENT OF LABORATORY MEDICINE RDW-CV 12.7 11.0 - 15.0 % 10/29/2025 12:17 PM [facility] DEPARTMENT OF LABORATORY MEDICINE Platelets 253 150 - 420 x1000/ L 10/29/2025 12:17 PM [facility] DEPARTMENT OF LABORATORY MEDICINE MPV 9.5 8.0 - 12.0 fL 10/29/2025 12:17 PM [facility] DEPARTMENT OF LABORATORY MEDICINE Neutrophils 51.2 39.0 - 72.0 % 10/29/2025 12:17 PM [facility] DEPARTMENT OF LABORATORY MEDICINE Lymphocytes 31.4 17.0 - 50.0 % 10/29/2025 12:17 PM [facility] DEPARTMENT OF LABORATORY MEDICINE Monocytes 8.8 4.0 - 12.0 % 10/29/2025 12:17 PM [facility] DEPARTMENT OF LABORATORY MEDICINE Eosinophils 7.1(H) 0.0 - 5.0 % 10/29/2025 12:17 PM [facility] DEPARTMENT OF LABORATORY MEDICINE Basophil 1.4 0.0 - 1.4 % 10/29/2025 12:17 PM [facility] DEPARTMENT OF LABORATORY MEDICINE Immature Granulocytes 0.1 0.0 - 1.0 % 10/29/2025 12:17 PM [facility] DEPARTMENT OF LABORATORY MEDICINE nRBC 0.0 0.0 - 1.0 % 10/29/2025 12:17 PM [facility] DEPARTMENT OF LABORATORY MEDICINE Absolute Lymphocyte Count 2.24 0.60 - 3.70 x 1000/ L 10/29/2025 12:17 PM [facility] DEPARTMENT OF LABORATORY MEDICINE Monocyte Absolute Count 0.63 0.00 - 1.00 x 1000/ L 10/29/2025 12:17 PM [facility] DEPARTMENT OF LABORATORY MEDICINE Eosinophil Absolute Count 0.51 0.00 - 1.00 x 1000/ L 10/29/2025 12:17 PM EST [facility] DEPARTMENT OF LABORATORY MEDICINE Basophil Absolute Count 0.10 0.00 - 1.00 x 1000/ L 10/29/2025 12:17 PM EST [facility] DEPARTMENT OF LABORATORY MEDICINE Absolute Immature Granulocyte Count 0.01 0.00 - 0.30 x 1000/ L 10/29/2025 12:17 PM [facility] DEPARTMENT OF LABORATORY MEDICINE Absolute nRBC 0.00 0.00 - 1.00 x 1000/ L 10/29/2025 12:17 PM [facility] DEPARTMENT OF LABORATORY MEDICINE ANC (Abs Neutrophil Count) 3.65 2.00 - 7.60 x 1000/ L 10/29/2025 12:17 PM EST [facility] DEPARTMENT OF LABORATORY MEDICINE Blood Venipuncture / Unknown 10/29/2025 10:09 AM EST 10/29/2025 10:09 AM EST Jaren Filemon Blood [facility] LAB BLOOD ORDERABLES Fi nal Result [facility] DEPARTMENT OF LABORATORY MEDICINE [address] [place] [address] * (ABNORMAL) Iron and TIBC (10/29/2025 10:09 AM EST) Pathologist [facility] Iron 71 37 - 145 ug/dL 10/29/2025 1:19 PM [facility] DEPARTMENT OF LABORATORY MEDICINE Comment:In the presence of h igh ferritin concentrations >1200 ng/mL, the assumption that serum iron is almost completely bound to transferrin is no longer valid. Therefore, such iron results should not be used to calculate Total Iron Binding Capacity (TIBC) or percent transferrin saturation (%SAT). Iron Saturation 30 15 - 50 % 1:19 PM EST [facility] DEPARTMENT OF LABORATORY MEDICINE TIBC 237(L) 250 - 450 ug/dL 10/29/2025 1:19 PM EST [facility] DEPARTMENT OF LABORATORY MEDICINE Blood Venipuncture / Unknown 10/29/2025 10:09 AM EST 10/29/2025 10:09 AM EST us Jaren Colbert Blood [facility] LAB BLOOD ORDERABLES Fi nal Result [facility] DEPARTMENT OF LABORATORY MEDICINE [address] [place] [address] * Hemoglobin A1c (10/29/2025 10:09 AM EST) Hemoglobin A1c 5.5 4.0 - 5.6 % % 10/31/2025 9:39 AM EST [facility] DEPARTMENT OF LABORATORY MEDICINE Comment: Hemoglobin A1c values of 5.7-6.4 % identify individuals with an increased risk for future diabetes and to whom the term pre-diabetes may be applied. Hemoglobin A1c values greater than 6.4% on more than one occasion are diagnostic of diabetes. Lowering HbA1c to below 7% is considered to reduce microvascular and neuropathic complications of diabetes. A s of 05/07/2025, this test is now being performed by [employer] ([employer]). There is no change in reference range. Results from the prior method are comparable. Estimated Average Glucose mg/dL 111 mg/dL 10/31/2025 9:39 AM EST [facility] DEPARTMENT OF LABORATORY MEDICINE Comment:Estimated average gl ucose (eAG) is a calculated value designed to estimate the expected average blood glucose level throughout the day from a single measurement of glycated hemoglobin A1C (HbA1c) and follows the calculation proposed by the [place] [employer] (Diabetes Care 31: 1-6, 2008). It may have less accuracy in children, women and patients with certain erythrocyte disorders. Blood Venipuncture / Unknown 10/29/2025 10:09 AM EST 10/29/2025 10:09 AM EST us Jaren Colbert Blood [facility] [employer] LAB BLOOD ORDERABLES Fi nal Result [facility] DEPARTMENT OF LABORATORY MEDICINE [address] [place] [id number] [phone] * (ABNORMAL) Ferritin (10/29/2025 10:09 AM EST) Ferritin 250(H) 13 - 150 ng/mL 10/29/2025 1:19 PM EST [facility] DEPARTMENT OF LABORATORY MEDICINE Blood Venipuncture / Unknown 10/29/2025 10:09 AM EST 10/29/2025 10:09 AM EST Jaren Colbert [facility] LAB BLOOD ORDERABLES Fi nal Result Performing Organization Address [facility] de Phone Number [facility] DEPARTMENT OF LABORATORY MEDICINE [address] [place] [address] * (ABNORMAL) Vitamin B12 (10/29/2025 10:09 AM EST) Vitamin B12 1,300(H) 232 - 1,245 pg/mL 10/29/2025 1:19 PM [facility] DEPARTMENT OF LABORATORY MEDICINE Blood Venipuncture / Unknown 10/29/2025 10:09 AM EST 10/29/2025 10:09 AM EST Jaren Colbert [facility] LAB BLOOD ORDERABLES Fi nal Result Performing Organization Address [facility] de Phone Number [facility] DEPARTMENT OF LABORATORY MEDICINE [address] [place] [address] * (ABNORMAL) Lipid panel (10/29/2025 10:09 AM EST) Cholesterol 242(H) See Comment mg/dL 10/29/2025 1:19 PM [facility] DEPARTMENT OF LABORATORY MEDICINE Comment: Total Cholesterol (mg/dL) Adults (>18 years) Children (<18 years) Desirable <200 <170 Borderline-High 200-239 170-199 High >=240 >=200 HDL 84 >=40 mg/dL 10/29/2025 1:19 PM [facility] DEPARTMENT OF LABORATORY MEDICINE Triglycerides 39 See Comment mg/dL 10/29/2025 1:19 PM [facility] DEPARTMENT OF LABORATORY MEDICINE Comment: Triglycerides (mg/dL) Adults (>18 years) Children (<18 years) Desirable <150 Not Established Borderline-High 150-199 Not Established High 200-499 Not Established Chol/HDL Ratio 2.9 0.0 - 5.0 10/29/2025 1:19 PM [facility] DEPARTMENT OF LABORATORY MEDICINE LDL Calculated 152(H) See Comment mg/dL 10/29/2025 1:19 PM [facility] DEPARTMENT OF LABORATORY MEDICINE Comment: Effective 05/04/2022, LDL is calculated using the Montez-THOMAS equation, which is more accurate than the Friedewald and Gurdeep-Rocha equations. LDL Cholesterol (mg/dL) Adults (>18 years) Children (<18 years) Desirable <100 <110 Above Desirable 100-129 Not Established Borderline-High 130-159 110-129 High 160-189 >=130 Very High >=190 Not Established Blood Venipuncture / Unknown 10/29/2025 10:09 AM EST 10/29/2025 10:09 AM EST us Jaren Colbert [facility] LAB BLOOD ORDERABLES Fi nal Result [facility] DEPARTMENT OF LABORATORY MEDICINE [address] [place] [id number], [facility] [phone] * Mammography Diagnostic Elijah Right (12/19/2023 12:06 PM EST) Anatomical Region Laterality Modality Breast Right Mammography 12/19/2023 11:4 1 AM EST Narrative 12/19/2023 12:07 PM EST #[id number] - MAMMO DIAGNOSTIC ELIJAH RIGHT: 12/19/2023 CLINICAL: Follow up of BIRADS 3 right breast finding. Digital breast tomosynthesis was performed and used in the interpretation of images. Current study was also evaluated with a Computer Aided Detection (CAD) system. Comparison is made to exams dated: 06/09/2023 mammogram - [facility], 05/01/2023 mammogram - [facility], and 12/01/2009 mammogram - [facility]. The right breast is heterogeneously dense, which may obscure small masses. Scattered calcifications are present in the right breast. There are grouped coarse heterogeneous calcifications in the right breast at 12 o'clock anterior depth which are not significantly changed from the prior comparison. No other significant masses or calcifications are seen in the breast. 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 A follow-up diagnostic bilateral mammogram and a screening ultrasound in 6 months is recommended to demonstrate stability. Based upon this recommendation, please enter an [employer] order for the suggested exam or fax to [phone]. The exam was reviewed by a staff physician. Your patient's mammograms demonstrate that she has dense breast tissue, which could hide small abnormalities. In compliance with [place] Public Act [place] 09-41 the patient has been sent a letter which informs her that she has dense breast tissue and might benefit from annual supplementary screening tests such as breast ultrasound screening or a breast MRI examination depending on her individual risk factors. The patient may contact you if she has any questions or concerns. Findings and recommendations were discussed with the patient, and a lay letter was provided at time of visit. Muna Jesus M.D. lp,sr/:12/19/2023 12:07:12 Financial Underwriter(s): Magalys Rowland, [facility] letter sent: Spoke with patient and gave patient lay letter Mammogram BI-RADS: 3 Probably benign Procedure Note Muna Melendez MD - 12/19/2023 #[id number] - MAMMO DIAGNOSTIC ELIJAH RIGHT: 12/19/2023 CLINICAL: Follow up of BIRADS 3 right breast finding. Digital breast tomosynthesis was performed and used in the interpretation of images. Current study was also evaluated with a Computer Aided Detection (CAD) system. Comparison is made to exams dated: 06/09/2023 mammogram - [facility], 05/01/2023 mammogram - [facility], and 12/01/2009 mammogram - [facility]. The right breast is heterogeneously dense, which may obscure small masses. Scattered calcifications are present in the right breast. There are grouped coarse heterogeneous calcifications in the right breast at 12 o'clock anterior depth which are not significantly changed from the prior comparison. No other significant masses or calcifications are seen in the breast. 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 A follow-up diagnostic bilateral mammogram and a screening ultrasound in 6 months is recommended to demonstrate stability. Based upon this recommendation, please enter an [employer] order for the suggested exam or fax to [phone]. The exam was reviewed by a staff physician. Your patient's mammograms demonstrate that she has dense breast tissue, which could hide small abnormalities. In compliance with [place] Public Act [place] 09-41 the patient has been sent a letter which informs her that she has dense breast tissue and might benefit from annual supplementary screening tests such as breast ultrasound screening or a breast MRI examination depending on her individual risk factors. The patient may contact you if she has any questions or concerns. Findings and recommendations were discussed with the patient, and a lay letter was provided at time of visit. Muna Jesus M.D. 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
--- OUTSIDE RECORDS SUMMARY | 2025-11-17 18:55 | XMS_ITS | Encounter Summary ---
Author Organization Ren Salguero MD Address Unknown Phone Care Team Providers Care Natural Resource Technician Name Role Phone Jaren Fuentes APRN Primary Care Provider Reason for Visit * Reason Comments Medication Refill Encounter Details Date Type Department Care Team (Late st Contact Info) Description 12/11/[address] Ren Salguero [address] [id number] Ren Salguero MD [address] [phone] Medication Refill Social History Tobacco [...] AM EDT Follow Up [facility] [place] [address] [place], [place] [phone] Jaren Fuentes APRN [address] [place] [phone] 06/11/2026 8:40 AM EDT Office Visit Cardiovascular Medicine at [address] [facility] [address] [place] [address] Blood, Jaren Colbert APRN [address] [place] [phone] Kings Frederick MD [address] [place] [phone] 08/31/2026 10:00 AM EDT Follow Up Dr Ren Salguero [address] [phone] Ren Salguero MD [address] [phone] 11/06/2026 4:00 PM EST Office Visit [facility] [place] [address] [place], [place] [phone] Gina, Jaren Colbert APRN [address] [place] [phone] documented as of this encounter Visit Diagnoses Diagnosis Allergy to contactant Allergy, unspecified not elsewhere classified Nummular dermatitis Contact dermatitis and other eczema, due to unspecified cause documented in this encounter Additional Health Concerns Infection Onset Date Last Indicated Resolved Time COVID-19 03/04/2022 03/04/2022 03/14/2022 7:20 PM EDT documented as of this encounter Care Teams Natural Resource Technician Relationship Specialty Start Date End Date Jaren Fuentes APRN [address] [place] [phone] PCP - General Internal Medicine 05/21/25 documented as of this encounter
--- OUTSIDE RECORDS SUMMARY | 2025-11-17 18:55 | XMS_ITS | Clinical Summary ---
Author Organization [facility] Address [address] [place] [address] Care Team Providers Care Med Peds Name Role Phone Ren Salguero MD Unavailable [phone] Stephanie Deluca MD Unavailable Allergies Active Allergy Reactions Criticality Noted Date Comments Balsam Arti-[place] Oil Hives,Rash/Dermatitis,Swelling Medi um 10/21/2024 Penicillins Rash/Dermatitis,Unkn own/Patien t and Family Unable to Define Medium 10/29/2015 Medications clobetasol (TEMOVATE) 0.05 % cream apply to affected area twice a day for 2 weeks then once daily for 2 weeks 12/28/2021 Active ALPRAZolam (XANAX) 0.5 MG tabletIndicatio ns:Anxiety Take 1 tablet (0.5 mg total) by mouth 4 times daily (every 6 hours) as needed for anxiety. 30 tablet 04/29/2025 Active Active Problems Problem Noted Date Diagnosed Date Clawtoe, acquired, right 04/04/2023 Onychomycosis 04/03/2023 History of nonmelanoma skin cancer 05/21/2021 Overview (08/13/2021): BCC left forearm 04/2021 Immunizations Immunization Administration Dates Next Due Influenza High-Dose Trivalen t,(FLUZONE HIGH-DOSE), Perservative Free IM 0.5 mL 65 years and older 09/29/2024 Influenza Inactivated/Split Preservative Free IM 08/19/2022 Influenza, Quadrivalent 10/29/2015 Influenza, Quadrivalent (FLU ARIX, AFLURIA, FLULAVAL, FLUZONE) Preservative Free IM 09/29/2021,09/28/2020 Influenza, Quadrivalent (FLU CELVAX) MDCK, Preservative Free IM 08/17/2023 RSV, Recombinant, Protein Holm bunit RSV Prefusion F (AREXVY), Adjuvant Recon 0.5 mL PF 11/16/2023 Tdap 08/13/2021 Zoster Vaccine Recombinant (Shingrix) 10/04/2024 ,09/29/2023 Family History Medical History Relation Name Comments Heart disease Father Hypertension Father Stroke Father Heart attack Sister 3 Stroke Sister 3 Breast cancer Neg Hx Colon cancer Neg Hx Lung cancer Neg Hx Ovarian cancer Neg Hx Relation Name Status Comments Brother 1 Alive Brother 2 Alive Father Mother Sister 1 Alive Sister 2 Alive Sister 3 Alive Sister 4 Alive Social History Tobacco Use Types Packs/Day Years Used Date Smoking Tobacco: Never Smokeless Tobacco: Never Tobacco Cessation:Counseling Given: Not Answered Alcohol Use Standard Drinks/Week Comments Not Currently 1 (1 standard drink = 0.6 oz pur e alcohol) PHQ-2 Answer Date Recorded PHQ-2 Total Score 0 08/19/2022 Comments Unknown Sex and Gender Information Value Date Recorded Sex Assigned at Female 10/21/2024 1:23 PM EST Legal Sex Female 4:33 PM EST Gender Identity Not on file Sexual Orientation Not on file Last Filed Vital Signs Vital Sign Reading Time Taken Comments Blood Pressure 112/80 03/06/2025 10:21 AM EDT Pulse 82 03/06/2025 10:21 AM EDT Temperature 36.7 C (98.1 F) 03/06/2025 10:21 AM EDT Respiratory Rate 16 01/27/2023 9:35 AM EST Oxygen Saturation 98% 03/06/2025 10:21 AM EDT Inhaled Oxygen Concentration - - Weight 64 kg (141 lb) 03/06/2025 10:21 AM EDT Height 169.5 cm (5' 6.75 ) 03/06/2025 10:21 AM E DT Body Mass Index 22.25 03/06/2025 10:21 AM EDT Plan of Treatment Health Maintenance Due Date Last Done Comments Advance Care Planning 1960 Hepatitis C Virus Screening 1960 Colonoscopy 02/28/2004 Pneumococcal Vaccines 50+ (1 of 1 - PCV) 2009 DXA Bone Density (Females,Ages 65 and older) 02/28/2024 Mammogram 06/09/2025 06/09/2023, 05/27 (Previously Completed) Influenza Vaccine 06/27/2025 09/29/2024, , 08/19/2022, Additional history exists COVID-19 Vaccine ( season) 2025 09/29/2024, 08/17/2023, 09/25/2022, Additional history exists DTaP/Tdap/Td Vaccines (2 - Td or Tdap) 08/13/2031 08/13/2021 RSV Vaccine 50 years and older and Patients Completed 11/16/2023 Zoster (Shingles) Vaccine Completed 10/04/2024, 01/2023 Hepatitis B Vaccines Aged Out No long er eligible based on patient's age to complete this topic [facility] Care Teams Med Peds Relationship Specialty Start Date End Date Stephanie Deluca MD [facility] [place] [address] PCP - [employer] Commercial Attributed 10/27/23 Ren Salguero MD Dermatology 05/12/22
== END 2025-11-17 17:19 | disposition home or self-care (01) ==
PROVIDERS: Emergency Provider Emergency Medicine
DX: S01.111A Laceration without foreign body of right eyelid and periocular area, initial encounter (principal); S89.91XA Unspecified injury of right lower leg, initial encounter; S89.92XA Unspecified injury of left lower leg, initial encounter; R51.9 Headache, unspecified; M54.2 Cervicalgia; M25.562 Pain in left knee; M25.561 Pain in right knee; M25.511 Pain in right shoulder; X58.XXXA Exposure to other specified factors, initial encounter; Y93.9 Activity, unspecified; Y92.9 Unspecified place or not applicable; Y99.8 Other external cause status; Z23 Encounter for immunization
CPT/HCPCS: 12011; 70450; 72125; 73030; 73564; 90471; 90715; 99284; J2004

== ENCOUNTER → 2025-11-17 15:03 | Outpatient (BNV) | payer SELFPAY | PROVIDERS: Visit Provider Radiology Diagnostic Radiology | DX: M50.30 Other cervical disc degeneration, unspecified cervical region (principal); M47.812 Spondylosis without myelopathy or radiculopathy, cervical region; E04.2 Nontoxic multinodular goiter; G93.89 Other specified disorders of brain; M19.011 Primary osteoarthritis, right shoulder; Z04.3 Encounter for examination and observation following other accident | CPT/HCPCS: 70450; 72125; 73030; 73564 ==